=== PATIENT | female | born 1930 | race Caucasian/White ===

== ENCOUNTER → 2017-08-29 | Outpatient (CLI) | payer OTHER, MEDICARE ==
[~2017-08-29] MED LIST: ACET-1256 PO; ALBU18002 INH; AMOX1TAB43 PO; CHOL200010 PO; DXY100 PO; FENO145T26 PO; FLNIN/ NAE; FLUT0.15; FURO40TA3 PO; GFNSR600 PO; LBT/100 PO; LEVO100T7 PO; NXM/40 PO; NYSP EXT; OXGN; PRD10 PO
--- NOTE | 2017-08-30 05:37 | PAP/PSG TECHNICIAN REPORT ---
[facility] Treatment Plant Mechanic Polysomnogram Report Study name: None Report date: 08/30/2017 Study date: 08/29/2017 Referring Physician: Cody Arreola MD Name: DAVIS ROCK Interpreting Physician: Cezar Kaiser D.O. Date of : 1930 Treatment Plant Mechanic: LATOYA Phan. Sex: Female Age: 87 StudyType: PSG Weight: 201 lbs Height: 87 years, Height 4' 7" Neck Circum:16.5in. BMI: 46.71 Medications: Cholecalciferol Crystals, Esomeprazole Magnesium 20mg, Fenofibrate 145mg, Fluticasone propionate 50mcg/act, Labetalol HCl 100mg, Lasix 40mg, Levothyroxine Sodium 100mcg, ProAir HFA 108 mcg/act, Tricor 145mg, Oxygen 2lpm Patient History Study started on room air but after talking to Dr. Kaiser on the phone he suggested adding oxygen if her oxygen saturation was at or below 88 %(which it was) after starting test. ETCO2 monitoring was not utilized. She was in room #6. 87 yr old female here [facility] for a possible split study. She was in the hospital in June 2017 for bronchitis and Pneumonia. She has a history of chronic bronchitis but never has smoked. She was placed on Bi-pap and oxygen while in the hospital. She "tries" to use 2 lpm oxygen but has only been using it at night She was brought in to the lab in a wheel chair and during park superintendent she could not even talk without being short of breath (this is why was called) Her ESS=8/21. Neck circ=16.5inches. Parameters Monitored NPSG: E1-M2, E2-M1, Fp1-M2, Fp2-M1, F3-M2, F4-M2, F4-M1, C3-M2, C4-M2, C4-M1, O1-M2, O2-M2, O2-M1, T3-M2, T4-M1, P3-M2, P4-M1, CHIN1, CHIN2, HR, EKG, Legs, PFLOW, SNOR, FLOW, CFLOW, Tidal Volume, THOR, ABDO, SpO2, PLTH, CPRESS, ETCO2 Wave, ETCO2, pH Sleep Architecture Sleep Stages Time at Lights Off 10:41:58 PM STAGES Time (min.) TST (%) Time at Lights On 5:28:28 AM Wake 139.0 -- Total Recording Time (TRT) 406.00 min. N1 20.0 7 Total Sleep Period (TSP) 391.0 min. N2 191.5 72 Total Sleep Time (TST) 267.0min. N3 35.0 13 Awake Time 139.0 min. REM 20.5 8 Wake after Sleep Onset 124.0 min. Sleep Efficiency (SE) 66 % Sleep Onset Latency (KALIN) 15.5 min. Number of Stage 1 Shifts None Awakenings 34 Stage Changes 121 Number of REM periods 14 REM 20.5 8 REM Latency 187.0 min. NREM 246.5 92 Body Position Analysis Supine Right Left Side Prone Vertical Total Sleep Time (min.) 277.2 94.5 0.0 94.50 0.0 0.0 Total Sleep Time (%) 65% 35% 0% 35 0% N/A% Total Sleep Time REM (min.) 16.0 4.5 0.0 None 0.0 0.0 Total Sleep Time NREM (min.) 156.5 90.0 0.0 None 0.0 0.0 Intermittent Wake (min.) 104.7 34.3 0.0 None 0.0 0.0 Total Sleep Period (%) 67% None None None None None Arousals Myoclonus (PLM) * Events Count Index Events Count Index Spontaneous 8 2 Events Awake (PLMW) 125 54.0 Respiratory 10 2.2 Events Asleep w/ Arousal (PLMA) 10 2.2 PLM 10 2 Events Asleep w/o Arousal (PLMS) 138 31.0 Snoring 7 2 Total Asleep 148 33.3 Total 34 8 Total 273 40 Respiratory Analysis * CA OA MA CH H RERA Total Count 0 16 0 0 12 0 28 Index 0.0 3.6 0.0 0 2.7 0 6.3 Mean Duration 0.0 22.5 0.0 0.00 21.6 0.0 22.1 Longest Duration 0.0 33.9 0.0 0.00 0.0 0.0 45.6 Respiratory Event Summary Total Supine ~Supine Right Left Prone REM NREM Apneas Count 16 8 8 8 N/A N/A 5 11 Index 3.6 3 5 5.1 N/A N/A 15 3 Hypopneas (4% Desat) Count 12 11 1 1 N/A N/A 8 4 Index 2.7 3.8 1 0.6 N/A N/A 23.4 1.0 Apneas & All Hypopneas Count 28 19 9 9 N/A N/A 13 15 Index 6.3 7 6 6 N/A N/A 38.0 3.7 Respiratory Events (Underground Repairer+All Hyp+RERA) Count 28 19 9 9 N/A N/A 13 15 Index 6.3 7 6 5.7 N/A N/A 38.0 3.7 Respiratory Related Arousal Count 10 19 6 6 N/A N/A 6 4 Index 2.2 1 4 4 N/A N/A 18 1 Snoring Analysis Supine Right Left Prone REM NREM Total Snore duration 57.7 min Snores count 622 1,290 N/A N/A 84 1,828 1,912 Snore mean duration 1.8 Sec Snores index 216 819 N/A N/A 245.9 444.9 429.7 TST with snoring (%) 21.6% Desaturation Event Summary: Minimum %SpO2 Event Count Mean/Min/Max Duration(sec.) Desaturation Index % Time In Bed > 90 23 35.8 / 13.0 / 60.0 4.6 78.3 86 - 90 25 16.8 / 6.8 / 48.8 18.8 20.7 81 - 85 1 13.0 / 13.0 / 13.0 15.3 1.0 76 - 80 0 N/A 0.0 0.0 71 - 75 0 N/A 0.0 0.0 66 - 70 0 N/A 0.0 0.0 61 - 65 0 N/A 0.0 0.0 56 - 60 0 N/A 0.0 0.0 51 - 55 0 N/A 0.0 0.0 < 50 0 N/A 0.0 0.0 Total REM NREM Awake <50% 0.0 min. 0.0 min. 0.0 min. 0.0 min. 51 - 60% 0.0 min. 0.0 min. 0.0 min. 0.0 min. 61 - 70% 0.0 min. 0.0 min. 0.0 min. 0.0 min. 71 - 80% 0.0 min. 0.0 min. 0.0 min. 0.0 min. 81 - 90% 83.8 min. 11.0 min. 58.4 min. 14.5 min. 91 - 100% 302.2 min. 9.5 min. 186.8 min. 105.8 min. Average 92 91 92 93 Minimum SpO2 81 81 87 82 Desaturation Event Index 6.2 52.7 1.7 8.2 # Desat. Events below 89% 29 13 0 16 Time(%) with Saturation below 89% 4.2 1.4 0.4 2.4 Time(min.) with Saturation below 89% 16.3 5.5 1.4 9.4 Time (mins) REM (mins) NREM (mins) % of TST SpO2 Below 90% 19 14 N5 8.4 SpO2 Below 88% 6 0 0 1 Heart Rate Analysis Min (bpm) Max (bpm) Average (bpm) Awake 42 127 86 NREM 73 100 82 REM 74 96 87 Overall 73 100 82 Supplemental O2 Values Minimum O2 level: None Value Start Time End Time Treatment Plant Mechanic Comments Mr. Rock slept in the right and supine positions. No cardiac arrhythmia noted. Some limb movements noted. No bruxism noted. Snoring was noted and scored as a 3 on a scale of 1 through 5. (0=no snoring, 5=snoring loud enough to be heard through a closed door or down the leslie way) She awoke to use the restroom 1 time during the night. She stated that she slept about the same as usual. She awoke many times from a tight, non-productive cough and stated that she feels as though she never got better from her bronchitis and pneumonia. The final report will be interpreted and signed by a sleep physician. The completed physician report will then be placed in the patient medical record. Therapy (cm H2O) 0 TIB (min.) 406.0 TST (min.) 267.0 Sleep Onset (min.) 15.5 REM Onset From Sleep (min.) 187.0 Sleep Efficiency % 66 Wakefulness (%) 34 Wakefulness (min.) 139.0 NREM 1 (%) 7 NREM 1 (min.) 20.0 NREM 2 (%) 72 NREM 2 (min.) 191.5 NREM 3 (%) 13 NREM 3 (min.) 35.0 REM (%) 8 REM (min.) 20.5 # Arousals 34 Arousal Index 8 # Snore 1,912 Snore Index 429.7 AHI 6.3 AHI Supine 7 AHI Non-Supine 6 NREM AHI 3.7 REM AHI 38.0 RDI 6.3 # Obstructive Apnea 16 # Central Apnea 0 # Mixed Apnea 0 # Hypopneas 12 RERAs 0 Total Respiratory Events 32 Time Below SpO2 89% (min.) 6.9 Mean NREM SpO2 (%) 92 Mean REM SpO2 (%) 91 Mean Sleep SpO2 (%) 92 Min NREM SpO2 (%) 87 Min REM SpO2 (%) 81 Position Supine (min.) 277.2 Position Non-supine (min.) 94.5 LM Index Sleep 33.3 LM Index NREM 34.8 LM Index REM 14.6 Mean Heart Rate (bpm) 82 Min Heart Rate (bpm) 73
--- NOTE | 2017-09-07 10:30 | Sleep Study ---
Sleep Study Report Date of Service: 08/29/2017 Sleep Study Report CLINICAL DATA: The patient is an 87-year-old female who was hospitalized recently with respiratory failure. She had hypercarbia. Her [place] Sleepiness Scale score is 8 out of a possible 24. This was an in-lab overnight polysomnography to help exclude obstructive sleep apnea in light of the above history. SLEEP ARCHITECTURE: The total sleep period was 391 minutes. The total sleep time was 267 minutes. The sleep efficiency was moderately reduced to 66 percent. The sleep latency was 15.5 minutes. Wake after sleep onset was prolonged to 124 minutes. The REM latency was prolonged to 187 minutes. Sleep consisted of stage N1 7 percent , stage N2 72 percent, stage N3 13 percent, stage REM 8 percent. AROUSAL DATA: The patient had a total of 34 arousals including 8 spontaneous arousals, 10 respiratory arousals, 10 PLM arousals, and 7 snoring arousals. The arousal index was 8. PLM DATA: The patient had a total of 148 periodic limb movements for a PLM index of 33.3. There were 10 arousals associated with limb movements for a PLM arousal index of 2.2. EKG: The underlying cardiac rhythm was normal sinus. The cardiac rates 73-100 beats per minute. The average heart rate was 82 beats per minute. No cardiac arrhythmia was noted. RESPIRATORY DATA: The patient had a total of 28 respiratory events including 16 obstructive apneas and 12 hypopneas. Hypopneas were scored according to the 4 percent desaturation rule. The longest apnea was 33.9 seconds. The mean duration of the apneas was 22.5 seconds. The mean duration of the hypopneas was 21.6 seconds. The apnea-hypopnea index was mildly elevated at 6.3 events per hour. This would represent mild obstructive sleep apnea. OXIMETRY DATA: The patient's oxygenation was less than 88 percent prior to starting the study. As result the study was done on 2 liter nasal cannula. The patient appeared short of breath to the robotic weld technician. The average saturation for the night was 92 percent. The minimum saturation was 81 percent. There was a total of 16.3 minutes with saturations less than 89 percent. ELECTRICAL SYSTEMS DRAFTER COMMENTS: The patient slept on the right and supine positions. No cardiac arrhythmia noted. Some limb movements noted. No bruxism noted. Snoring was noted and scored as a 3 on a scale of 1 through 5. She awakened to use the restroom 1 time during the night. She awoke many times from a tight nonproductive cough and stated that she feels as though she never got better from her bronchitis and pneumonia. IMPRESSIONS: 1. Mild obstructive sleep apnea COMMENTS: The patient had mild sleep apnea. Her sleep was not well consolidated. Her sleep efficiency was decreased. Her sleep was restless in part due to coughing as noted above. Oxygen was used throughout the night during the study. The majority of her respiratory events occurred during REM sleep and the REM apnea- hypopnea index was 38. In light of her history of respiratory failure with hypercarbia, treatment with nasal CPAP or nasal BiPAP would be advised. RECOMMENDATIONS: 1. It is suggested that the patient be treated with nasal CPAP were nasal BiPAP. This could be done by an in-lab titration study. An alternative would be treatment with auto CPAP. 2. Weight loss is advised in light of the severe elevation of body mass index of 46.71. 3. If the patient refuses treatment with nasal CPAP or BiPAP, will continue with the HS oxygen therapy that she is on currently. Copies To 1: Cezar Kaiser DO; Sera Hoffman D.O.; Cody Arreola M.D.
== END | disposition home or self-care (01) ==
LOC: C.NEUR 20:00
PROVIDERS: ATTEND Internal Medicine Pulmonary Disease
DX: G47.33 Obstructive sleep apnea (adult) (pediatric) (principal); J98.11 Atelectasis